=== PATIENT | male | born 1965 | race Two or more races ===

== ENCOUNTER 2022-12-05 12:04 | Emergency (ER) | payer MEDICAID, MEDICARE ==
[~2022-12-05] VITALS: Ht 177.8 cm; Wt 100.0 kg
[~2022-12-05 12:04] MED LIST: DIVA125T2 PO
[2022-12-05 12:08] VITALS: BP 113/51
== END 2022-12-05 12:48 | disposition left against medical advice (07) ==
LOC: ER 12:18
DX: Z53.21 Procedure and treatment not carried out due to patient leaving prior to being seen by health care provider (principal)